=== PATIENT | female | born 1985 | race Hispanic/Latino ===

== ENCOUNTER → 2020-03-24 09:13 | Outpatient (CLI) | payer OTHER, MEDICAID, SELFPAY ==
--- NOTE | 2020-03-24 | DI.MRI.S_ITS ---
PROCEDURE: MR KNEE RT WO CON INDICATIONS: Other tear of medial meniscus, current injury, right knee, TECHNIQUE: Noncontrast sagittal PD fast spin echo and T2 fast spin echo with fat saturation, sagittal 3-D FLASH with fat saturation; coronal T1 spin echo and PD fast spin echo with fat saturation, and axial PD fast spin echo with fat saturation through the knee. COMPARISON: None. FINDINGS: Image quality: Excellent. Menisci: Medial meniscus is normal in size and signal intensity. Complex tear involving anterior horn of lateral meniscus is seen extending to both superior and inferior articulating surfaces. Large lobulated cystic structure anterior to lateral meniscus is seen with internal septations and measures up to 4.9 x 2.6 x 2.7 cm in size with no clear communication with joint space suspicious for a large perimeniscal cyst. The meniscal root ligaments appear intact. Cruciate ligaments: The anterior and posterior cruciate ligaments appear intact. Medial structures: The medial collateral ligament appears intact. The posterior oblique ligament, semimembranosus tendon insertions, oblique popliteal ligament, and meniscocapsular junction appear intact. Visualized portions of the pes anserinus tendons appear normal. No abnormal bursal fluid. Lateral structures: There is low-grade sprain/partial thickness tear involving proximal lateral collateral ligament. The long and short heads of the biceps femoris tendon appear intact. The popliteus tendon appears normal; the popliteofibular ligament appears intact. The posterosuperior and anteroinferior popliteomeniscal fascicles appear intact. The arcuate and fabellofibular ligaments appear intact, on either side of the lateral inferior geniculate artery. Iliotibial band appears normal. Anterior structures: The quadriceps and patellar tendons appear intact. Patellar alignment is normal. No femoral trochlear dysplasia or ventral trochlear prominence. No edema in the infrapatellar fat pad. Bones and cartilage: No bone marrow contusions or fractures. The cartilage of the medial and lateral femorotibial compartments, as well as the patellofemoral compartment, appears normal in thickness. Joint space: There is small to moderate amount of joint effusion.. No Marquez's cyst. Normal appearing synovial plicae are incidentally noted. IMPRESSION: 1. Complex tear involving anterior horn of lateral meniscus extending to both superior and inferior articulating surfaces with suggestion of large perimeniscal cyst measures 4.6 x 2.6 x 2.7 cm in size anterior to the lateral meniscus with internal septation. No evidence of focal lateral meniscal tear. 2. Low-grade proximal LCL sprain/partial thickness tear. Cruciate ligaments are intact. 3. No fracture or dislocation. Articulating cartilages are grossly intact. Small to moderate joint effusion. Dictated by: Mason Crockett M.D. on 03/24/2020 at 11:46 Approved by: Mason Crockett M.D. on 03/24/2020 at 11:56
== END ==
PROVIDERS: Referring Provider Orthopaedic Surgery; Visit Provider Orthopaedic Surgery
DX: S83.271A Complex tear of lateral meniscus, current injury, right knee, initial encounter (principal); S83.421A Sprain of lateral collateral ligament of right knee, initial encounter; M25.461 Effusion, right knee
CPT/HCPCS: 73721

== ENCOUNTER 2021-05-25 09:24 | Emergency (ER) | payer OTHER, MEDICAID, SELFPAY ==
[2021-05-25 09:34] VITALS: BP 160/80; PULSE 80; RESP 17; TEMP 36.7; O2SAT 100; BMI 35.6
--- NOTE | 2021-05-25 09:42 | ED_ITS ---
HPI - Headache General Chief Complaint: Headache Stated Complaint: HEADACHE/PAIN ON RT SIDE OF HEAD/SWEATS Time Seen by Provider: 05/25/21 09:29 Mode of arrival: Ambulatory Limitations: no limitations History of Present Illness HPI Narrative: Patient is a 35-year-old female approximately 5 days ago she hit the top of her head on a piece of furniture while doing laundry. She had no loss of consciousness. She is not on blood thinners. Since that time she has had a right-sided headache. Last night she stated that she was having some sweating. She feels like the right side of her head is full. She has some pain on her neck on the right side. The pain is worse with touching the area. Also has had some nausea. Also has had some vision changes in her right eye that seem to come and go. She has tried some Tylenol and ibuprofen equivalent prior to arrival with only minimal improvement. Related Data Previous Rx's Medication Instructions Recorded cyclobenzaprine 10 mg tablet 10 mg PO TID PRN #10 tab 05/25/21 Review of Systems Constitutional Constitutional: Reports headache(s) Eyes Eyes: Reports as per HPI ENT Ears, Nose, Mouth, and Throat: Reports headache(s) and Reports neck pain Cardiovascular Cardiovascular: Reports system reviewed and no additional complaints, except as documented Respiratory Respiratory: Reports system reviewed and no additional complaints, except as documented Gastrointestinal Gastrointestinal: Reports system reviewed and no additional complaints, except as documented and Reports nausea Musculoskeletal Musculoskeletal: Denies back pain and Reports neck pain Integumentary/Breasts Skin/Breast: Reports system reviewed and no additional complaints, except as documented Neurologic Neurologic: Reports system reviewed and no additional complaints, except as documented and Reports headache(s) Endocrine Endocrine: Reports system reviewed and no additional complaints, except as documented Hematologic/Lymphatic On Anticoagulants: No Allergic/Immunologic Allergic/Immunologic: Reports system reviewed and no additional complaints, except as documented Patient History Medical History Healthy adult Social History Smoking Status: Former smoker Smoking Status: Former smoker alcohol intake frequency: 0-2 drinks per day Substance Use Type: does not use Exam Initial Vital Signs Initial Vital Signs: Vital Signs Temperature 98.1 F 05/25/21 09:34 Pulse Rate 80 05/25/21 09:34 Respiratory Rate 17 05/25/21 09:34 Blood Pressure 160/80 H 05/25/21 09:34 Pulse Oximetry 100 05/25/21 09:34 Const General: cooperative and comfortable HENMT Head: normal to inspection and normocephalic Ears: TM's normal bilaterally Nose: external nose normal Face and sinus: normal facial exam Mouth: oral mucosae normal Eyes Pupils: PERRL EOM: EOM intact bilaterally Other: No photophobia Resp Effort & Inspection: normal respiratory effort Auscultation: clear to auscultation bilaterally Cardio Rate: regular rate Rhythm: regular rhythm Skin General: no rashes or lesions noted Neuro General: patient alert, patient awake and patient oriented x3 Cranial Nerves: CN's II-XI intact bilaterally Speech: speech normal Gait: normal gait Extrem General: normal to inspection and capillary refill normal Psych Appearance: grossly normal and well kempt Scores [place] Head Rule Age <16 years old: No Patient on blood thinners: No Seizure after injury: No Exclusion: Patient NOT Excluded, Proceed to next steps GCS < 15 at 2 hr post trauma: No Suspected open or depressed skull fracture: No Any sign of basilar skull fracture (hemotympanum, raccoon eyes, Means's sign, CSF bill-/rhinorrhea): No Two or more episodes of vomiting: No Age greater or equal to 65 years: No Retrograde amnesia to the event greater or equal to 30 min: No Dangerous Mechanism (pedestrian vs. mv, occupant ejected from mv, fall from >3 ft or > 5 stairs): No Recommendation: CT unnecessary GCS Viola coma scale eye opening: Spontaneous Noemi coma scale verbal response: Orientated Noemi coma scale motor response: Obey commands Viola coma scale total score: 15 Course Vital Signs Vital signs: Vital Signs - 8 hr 05/25/21 09:34 Temperature 98.1 F Pulse Rate 80 Respiratory Rate 17 Blood Pressure 160/80 H Pulse Oximetry 100 MDM - Headache MDM Narrative Medical decision making narrative: Patient is nontoxic appearing. She is low risk per the [place] Head CT Rule. Her head injury was 5 days ago. Low suspicion for skull fracture. Low suspicion for intracranial hemorrhage. No indication for head CT. Physical exam is very consistent with a post concussive syndrome. I did discuss this with the patient. I did offer a trigger point injection however she declined. She will continue to use Tylenol/ibuprofen. Will also send home with some muscle relaxers. She was given return precautions. She expressed understanding and agreement Discharge Plan Departure Patient Disposition: Home Clinical Impression: Postconcussion syndrome Instructions: DI for Postconcussion Syndrome Activity Restrictions/Additional Instructions: You can continue to use Tylenol and/or Motrin/ibuprofen. You may have to use these medications multiple times a day. Please refer to the packaging for dosing. They symptoms that you are having sometimes can take days/weeks to improve. Everyone is somewhat different with this. If your symptoms persist past a couple weeks you do need to talk with your primary doctor as you may need to get into see a concussion specialist. Prescriptions: New cyclobenzaprine 10 mg tablet 10 mg PO TID PRN (Reason: muscle spasm) Qty: 10 RF: 0
== END 2021-05-25 09:56 | disposition home or self-care (01) ==
PROVIDERS: Emergency Provider Emergency Medicine
DX: F07.81 Postconcussional syndrome (principal); M54.2 Cervicalgia
CPT/HCPCS: 99281

== ENCOUNTER 2021-05-29 13:53 | Emergency (ER) | payer OTHER, MEDICAID, SELFPAY ==
[2021-05-29 14:04] VITALS: BP 150/102; PULSE 87; RESP 18; TEMP 36.4; O2SAT 99; BMI 35.6
--- NOTE | 2021-05-29 14:08 | DI.CT.S_ITS ---
PROCEDURE: CT HEAD/BRAIN WO CON INDICATIONS: headache TECHNIQUE: Noncontrast 4.5 mm thick angled axial sections acquired from the foramen magnum to the vertex, with coronal and sagittal reformats. For radiation dose reduction, the following was used: automated exposure control, adjustment of mA and/or kV according to patient size. COMPARISON: None. FINDINGS: Image quality: Excellent. CSF spaces: Basal cisterns are patent. No extra-axial fluid collections. Ventricles are normal in size and shape. Brain: No midline shift. No intracranial masses or hemorrhage. Arreola-white matter interface is normal. Skull and face: Calvarium and visualized facial bones are intact, without suspicious lesions. Sinuses: Visualized sinuses and mastoids are clear. IMPRESSION: No acute intracranial disease process. Dictated by: Greta Penaloza MD, PhD on 05/29/2021 at 14:29 Approved by: Greta Penaloza MD, PhD on 05/29/2021 at 14:31
--- NOTE | 2021-05-29 14:21 | ED_ITS ---
HPI - Headache General Chief Complaint: Headache Stated Complaint: Headache Time Seen by Provider: 05/29/21 14:15 Mode of arrival: Ambulatory History of Present Illness HPI Narrative: Patient is a 35-year-old female here for evaluation of a headache. I evaluated her approximately 1 week ago after she was having a headache on the right side of her head behind her right eye. This started after she hit her head on a piece of furniture. There was no loss of consciousness. At the time of my last exam she was discharged home without imaging studies. She states she has had continued headache since then. It has worsened since then. Does have pain with vision in her right eye. No fevers. She has been taking the medications that she was discharged home with with only minimal improvement. Related Data Previous Rx's Medication Instructions Recorded [id number]-txuyfhirbitij-[id number] 1 cap PO Q4-6H PRN #14 cap 05/29/21 50 mg-300 mg-40 mg capsule (Fioricet) Allergies Allergy/AdvReac Type Severity Reaction Status Date / Time No Known Drug Allergies Allergy Verified 05/29/21 14:07 Review of Systems Constitutional Constitutional: Denies fever(s) and Reports headache(s) Eyes Eyes: Reports as per HPI ENT Ears, Nose, Mouth, and Throat: Reports system reviewed and no additional complaints, except as documented and Reports headache(s) Cardiovascular Cardiovascular: Reports system reviewed and no additional complaints, except as documented Respiratory Respiratory: Reports system reviewed and no additional complaints, except as documented Gastrointestinal Gastrointestinal: Reports system reviewed and no additional complaints, except as documented Integumentary/Breasts Skin/Breast: Reports system reviewed and no additional complaints, except as documented Neurologic Neurologic: Reports headache(s) Hematologic/Lymphatic On Anticoagulants: No Patient History Medical History Healthy adult Social History Smoking Status: Former smoker Smoking Status: Former smoker alcohol intake frequency: 0-2 drinks per day Substance Use Type: does not use Exam Initial Vital Signs Initial Vital Signs: Vital Signs Temperature 97.5 F L 05/29/21 14:04 Pulse Rate 87 05/29/21 14:04 Respiratory Rate 18 05/29/21 14:04 Blood Pressure 150/102 H 05/29/21 14:04 Pulse Oximetry 99 05/29/21 14:04 Const General: cooperative and healthy appearing [facility] Head: normal to inspection, normocephalic and atraumatic Eyes General: appearance normal, both eyes and all related structures Resp Effort & Inspection: normal respiratory effort Auscultation: clear to auscultation bilaterally Cardio Rate: regular rate Rhythm: regular rhythm Skin General: no rashes or lesions noted Neuro General: patient alert, patient awake, patient oriented x3 and moves all e xtremities Cognition: normal cognition Speech: speech normal Gait: normal gait Extrem General: normal to inspection and capillary refill normal Psych Appearance: grossly normal and well kempt Scores GCS Noemi coma scale eye opening: Spontaneous Noemi coma scale verbal response: Orientated [place] coma scale motor response: Obey commands Noemi coma scale total score: 15 Course Orders Ordered: ED Orders 05/29/21 14:08 CT head/brain wo con Stat 05/29/21 14:27 Urine Culture Stat Urine Microscopic Stat 05/29/21 14:30 Complete Blood Count AUTO DIFF Stat Comprehensive Metabolic Panel Stat Discontinued Medications Diphenhydramine HCl (Diphenhydramine 50 Mg/Ml Vial) 25 mg IV NOW ONE Stop: 05/29/21 14:30 Last Admin: 05/29/21 14:38 Dose: 25 mg Documented by: TATYANA Ketorolac Tromethamine (Ketorolac 30 Mg/Ml Vial) 30 mg IV NOW ONE Stop: 05/29/21 14:30 Last Admin: 05/29/21 14:39 Dose: 30 mg Documented by: TATYANA Metoclopramide HCl (Metoclopramide 10 Mg/2 Ml Inj) 10 mg IV NOW ONE Stop: 05/29/21 14:30 Last Admin: 05/29/21 14:38 Dose: 10 mg Documented by: TATYANA Vital Signs Vital signs: Vital Signs - 8 hr 05/29/21 14:04 05/29/21 15:00 05/29/21 15:30 Temperature 97.5 F L Pulse Rate 87 103 H 74 Respiratory Rate 18 Blood Pressure 150/102 H 109/65 Pulse Oximetry 99 100 100 05/29/21 16:00 Temperature Pulse Rate 67 Respiratory Rate Blood Pressure Pulse Oximetry 100 MDM - Headache Medical Records Attestation: I reviewed the patient's medical records. Lab Data Attestation: I reviewed the patient's lab results. Result diagrams: 05/29/21 14:30 05/29/21 14:30 Labs: Lab Results 05/29/21 05/29/21 05/29/21 Range/Units 14:27 14:30 14:30 WBC 6.2 (4.5-11.0) X10^3/uL RBC 4.70 (4.0-5.2) X10^6/uL Hgb 13.7 (12.0-16.0) g/dL Hct 41.0 (36-46) % MCV 87.2 (80-100) fL MCH 29.1 (26-34) PG MCHC 33.3 (30-36) % RDW 12.8 (11.6-14.8) % Plt Count 240 (150-400) X10^3/uL Neut % (Auto) 61.1 (50-75) % Lymph % (Auto) 29.2 (25-40) % [place] % (Auto) 8.4 (3-14) % Eos % (Auto) 0.9 L (2-4) % Baso % (Auto) 0.4 (0-2) % Neut # (Auto) 3800 (9623-1379) /uL Lymph # (Auto) 1800 (5092-2943) /uL [place] # (Auto) 500 (0-900) /uL Eos # (Auto) 100 (0-450) /uL Baso # (Auto) 0 (0-100) /uL Sodium 138 (137-145) mmol/L Potassium 4.0 (3.4-5.1) mmol/L Chloride 103 (98-107) mmol/L Carbon Dioxide 28 (22-32) mmol/L BUN 15 (7-17) mg/dL Creatinine 0.66 (0.52-1.04) mg/dL Estimated GFR > 60.0 (>60) mL/min BUN/Creatinine Ratio 22.7 H (6-22) Glucose 94 (70-100) mg/dL Calcium 9.4 (8.4-10.2) mg/dL Total Bilirubin 0.4 (0.2-1.3) mg/dL AST 28 (14-36) IU/L ALT 18 (<35) IU/L Alkaline Phosphatase 83 (38-126) U/L Total Protein 8.0 (6.3-8.2) g/dL Albumin 4.5 (3.5-5.0) g/dL Globulin 3.5 (1.7-4.1) g/dL Albumin/Globulin Ratio 1.3 (1.0-2.8) Urine RBC 5-10/hpf H (0-5/HPF) Urine WBC 5-10/hpf H (0-5/HPF) Amorphous Sediment 2+ Urine Bacteria Moderate (10-30) H (None) Urine Mucus 1+ H (Negative) Ur Culture Indicated? Specimen cultured Point of Care Testing Test Results Negative Urine Dip Bedside Urine Glucose Negative Bedside Urine Bilirubin - Negative Bedside Urine Ketone - Negative Urine Specific [place] 1.025 Bedside Urine Occult Blood + Bedside Urine pH 6.0 Bedside Urine Protein - Negative Bedside Urine Urobilinogen - Negative Bedside Urine Nitrite - Negative Bedside Urine Leukocytes - Negative Esterase Imaging Data CT scan - head: Radiologist's Impression: [address] [id number] Scan ReportSigned Patient: Clara Perry#: [id number]: 1985Acct:[id number]/Sex: 35 / FDate of Service: 05/29/21Loc: EDAccession Number: [id number] Procedure: CT head/brain wo con Ordering Provider: Massimo Juarez D.O. PROCEDURE: CT HEAD/BRAIN WO CON INDICATIONS: headache TECHNIQUE: Noncontrast 4.5 mm thick angled axial sections acquired from the foramen magnum to the vertex, with coronal and sagittal reformats. For radiation dose reduction, the following was used: automated exposure control, adjustment of mA and/or kV according to patient size. COMPARISON: None. FINDINGS: Image quality: Excellent. CSF spaces: Basal cisterns are patent. No extra-axial fluid collections. Ventricles are normal in size and shape. Brain: No midline shift. No intracranial masses or hemorrhage. Arreola-white matter interface is normal. Skull and face: Calvarium and visualized facial bones are intact, without suspicious lesions. Sinuses: Visualized sinuses and mastoids are clear. IMPRESSION: No acute intracranial disease process. Dictated by: Greta Penaloza MD, PhD on 05/29/2021 at 14:29 Approved by: Greta Penaloza MD, PhD on 05/29/2021 at 14:31 MDM Narrative Medical decision making narrative: Patient reports complete resolution of her symptoms after medications given here in the ER. Afebrile. Head CT is unremark able. Low suspicion for intracranial hemorrhage given her presentation. I do suspect that this is postconcussive syndrome. Will send her home with Fioricet. She was given return precautions. She expressed understanding and agreement. Discharge Plan Departure Patient Disposition: Home Clinical Impression: Headache, Postconcussion syndrome Instructions: DI for Headache Activity Restrictions/Additional Instructions: I do recommend that you contact your primary doctor is you are most likely going to need follow-up to make sure that your symptoms are improving. Return to the emergency department for any new or worsening symptoms. Prescriptions: New orjwoyzgmo-mhbpopupyflzy-aidc [Fioricet] 50-300-40 mg capsule 1 cap PO Q4-6H PRN (Reason: pain) Qty: 14 RF: 0
[2021-05-29] MEDS: METOCLOPRAMIDE 10 MG/2 ML INJ IV (14:38)
[2021-05-29] MEDS: diphenhydrAMINE 50 MG/ML VIAL 25 MG IV (14:38)
[2021-05-29] MEDS: KETOROLAC 30 MG/ML VIAL IV (14:39)
[2021-05-29 14:40] LABS: RBC Urine 5-10/HPF (0-5/HPF); WBC Urine 5-10/HPF (0-5/HPF)
[2021-05-29 14:41] LABS: Amorphous Sediment Urine 2+; Bacteria Urine Moderate (10-30); Culture Indicated Urine Specimen Cultured; Mucus Urine 1+ (Negative)
[2021-05-29 14:43] LABS: Add Manual Diff / Slide Review NO; Basophils Absolute Auto 0 /uL (0-100); Basophils Percent Auto 0.4 % (0-2); Eosinophils Absolute Auto 100 /uL (0-450); Eosinophils Percent Auto 0.9 % (2-4); Hemoglobin 13.7 g/dL (12.0-16.0); Lymphocytes Absolute Auto 1800 /uL (1100-4500); Lymphocytes Percent Auto 29.2 % (25-40); Mean Corpuscular HGB Conc 33.3 % (30-36); Mean Corpuscular Hemoglobin 29.1 PG (26-34); Mean Corpuscular Volume 87.2 fL (80-100); Monocytes Absolute Auto 500 /uL (0-900); Monocytes Percent Auto 8.4 % (3-14); Neutrophils Absolute Auto 3800 /uL (1500-7000); Neutrophils Percent Auto 61.1 % (50-75); Platelet Count 240 X10^3/uL (150-400); Red Cell Distribution Width 12.8 % (11.6-14.8); White Blood Cell Count 6.2 X10^3/uL (4.5-11.0)
[2021-05-29 14:52] LABS: Alanine Aminotransferase 18 IU/L (<35); Albumin 4.5 g/dL (3.5-5.0); Albumin Globulin Ratio 1.3 (1.0-2.8); Alkaline Phosphatase 83 U/L (38-126); Aspartate Aminotransferase 28 IU/L (14-36); BUN Creatinine Ratio 22.7 (6-22); Bilirubin Total 0.4 mg/dL (0.2-1.3); Blood Urea Nitrogen 15 mg/dL (7-17); Calcium 9.4 mg/dL (8.4-10.2); Carbon Dioxide 28 mmol/L (22-32); Chloride 103 mmol/L (98-107); Estimated Glomerular Filt Rate > 60.0 mL/min (>60); Globulin 3.5 g/dL (1.7-4.1); Glucose 94 mg/dL (70-100); HEMOLYSIS 16 (0-50); Sodium 138 mmol/L (137-145)
[2021-05-29 15:00] VITALS: PULSE 103; O2SAT 100
[2021-05-29 15:30] VITALS: BP 109/65; PULSE 74; O2SAT 100
[2021-05-29 16:00] VITALS: PULSE 67; O2SAT 100
[2021-05-29 16:30] VITALS: BP 112/65; PULSE 71; O2SAT 100
== END 2021-05-29 17:08 | disposition home or self-care (01) ==
PROVIDERS: Emergency Provider Emergency Medicine
DX: F07.81 Postconcussional syndrome (principal); R51.9 Headache, unspecified
CPT/HCPCS: 36415; 70450; 80053; 81003; 81015; 81025; 85025; 87086; 96374; 96375; 99284; J1200; J1885; J2765

== ENCOUNTER 2024-03-25 14:49 | Emergency (ER) | payer OTHER, MEDICAID, SELFPAY ==
[2024-03-25 14:58] VITALS: BP 142/87; PULSE 85; RESP 14; TEMP 36.5; O2SAT 100; BMI 68.8
--- NOTE | 2024-03-25 15:13 | EKG_ITS ---
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
[2024-03-25 15:38] LABS: Add Manual Diff / Slide Review NO; Basophils Absolute Auto 0 /uL (0-100); Basophils Percent Auto 0.5 % (0-2); Eosinophils Absolute Auto 100 /uL (0-450); Eosinophils Percent Auto 0.8 % (2-4); Hematocrit 37.6 % (36-46); Hemoglobin 12.9 g/dL (12.0-16.0); Lymphocytes Absolute Auto 1800 /uL (1100-4500); Mean Corpuscular HGB Conc 34.5 % (30-36); Mean Corpuscular Hemoglobin 29.8 PG (26-34); Mean Corpuscular Volume 86.5 fL (80-100); Monocytes Absolute Auto 600 /uL (0-900); Monocytes Percent Auto 8.8 % (3-14); Neutrophils Absolute Auto 3900 /uL (1500-7000); Neutrophils Percent Auto 61.9 % (50-75); Platelet Count 241 X10^3/uL (150-400); Red Blood Cell Count 4.34 X10^6/uL (4.0-5.2); Red Cell Distribution Width 13.1 % (11.6-14.8); White Blood Cell Count 6.3 X10^3/uL (4.5-11.0)
[2024-03-25 15:55] LABS: Alanine Aminotransferase 14 IU/L (<35); Albumin 4.5 g/dL (3.5-5.0); Albumin Globulin Ratio 1.3 (1.0-2.8); Alkaline Phosphatase 85 U/L (38-126); Aspartate Aminotransferase 25 IU/L (14-36); Bilirubin Total 0.6 mg/dL (0.2-1.3); Blood Urea Nitrogen 13 mg/dL (7-17); Calcium 8.7 mg/dL (8.4-10.2); Carbon Dioxide 23 mmol/L (22-32); Chloride 107 mmol/L (98-107); Estimated Glomerular Filt Rate > 60 mL/min (>60); Globulin 3.4 g/dL (1.7-4.1); Glucose 96 mg/dL (70-100); HEMOLYSIS < 15 (0-50); Lipase 75 U/L (23-300); Potassium 3.7 mmol/L (3.4-5.1); Sodium 135 mmol/L (137-145); Total Protein 7.9 g/dL (6.3-8.2)
[2024-03-25 17:03] VITALS: BP 135/88; PULSE 61; O2SAT 100
[2024-03-25 17:30] VITALS: BP 136/75; O2SAT 99
[2024-03-25 18:00] VITALS: BP 130/76; PULSE 71; O2SAT 100
--- NOTE | 2024-03-25 18:29 | ED.ABDPAIN ---
HPI - Abdominal Pain General Chief Complaint: Abdominal Pain Stated Complaint: Abdominal Pain Time Seen by Provider: 03/25/24 15:11 Source: patient Mode of arrival: Ambulatory History of Present Illness HPI narrative: 38-year-old female presents for evaluation of right lower quadrant abdominal pain. Patient states that she has had pain in his area for several months, but it became worse in the last 2 days. She states that she feels there is a ?ball? in her right abdomen. She was not taken any medications at home for symptoms. She was never seen a primary care doctor for this complaint. Denies nausea, vomiting, change in bowel habits, dysuria, vaginal bleeding, other complaints at this time. Related Data Previous Rx's Medication Instructions Recorded ngygwimnqq-eykszcskvzkvn-kepqxznd 1 cap PO Q4-6H PRN pain #14 caps 05/29/21 50 mg-300 mg-40 mg capsule (Fioricet) Allergies Allergy/AdvReac Type Severity Reaction Status Date / Time No Known Drug Allergies Allergy Verified 05/29/21 14:07 Patient History Medical History Healthy adult Social History Smoking Status: Former smoker Smoking Status: Former smoker alcohol intake frequency: 0-2 drinks per day Substance Use Type: does not use Exam Initial Vital Signs Initial Vital Signs: Vital Signs Temperature 97.7 F 03/25/24 14:58 Pulse Rate 85 03/25/24 14:58 Respiratory Rate 14 03/25/24 14:58 Blood Pressure 142/87 H 03/25/24 14:58 Pulse Oximetry 100 03/25/24 14:58 Oxygen Delivery Method Room Air 03/25/24 14:58 Const: Awake, alert, no acute distress, nontoxic appearing Cardiac: regular rate, regular rhythm RESP: unlabored, clear bilaterally, no wheezing GI: Soft, nontender, nondistended, no rebound, no guarding MSK: Atraumatic, full range of motion, pulses equal Skin: Warm, Dry, intact, no rashes Neuro: AO x3, CN II-XII grossly intact, moves all extremities Course Orders Ordered: ED Orders 03/25/24 18:28 CT abdomen pelvis w con Stat Discontinued Medications Ondansetron HCl (Ondansetron 4 Mg/2 Ml Inj) 4 mg IV NOW PRN PRN Reason: Nausea And Vomiting Ondansetron HCl (Ondansetron 4 Mg Odt) 4 mg PO NOW PRN PRN Reason: Nausea And Vomiting Vital Signs Vital signs: Vital Signs - 8 hr 03/25/24 19:00 Pulse Rate 61 Pulse Oximetry 100 MDM - Abdominal Pain Differential Diagnosis Differential diagnosis: Likely abdominal pain, acute appendicitis and calculus of kidney Lab Data 03/25/24 15:27 03/25/24 15:27 Labs: Lab Results 03/25/24 Range/Units 15:27 WBC 6.3 (4.5-11.0) X10^3/uL RBC 4.34 (4.0-5.2) X10^6/uL Hgb 12.9 (12.0-16.0) g/dL Hct 37.6 (36-46) % MCV 86.5 (80-100) fL MCH 29.8 (26-34) PG MCHC 34.5 (30-36) % RDW 13.1 (11.6-14.8) % Plt Count 241 (150-400) X10^3/uL Neut % (Auto) 61.9 (50-75) % Lymph % (Auto) 28.0 (25-40) % Hernando % (Auto) 8.8 (3-14) % Eos % (Auto) 0.8 L (2-4) % Baso % (Auto) 0.5 (0-2) % Neut # (Auto) 3900 (3806-8620) /uL Lymph # (Auto) 1800 (7865-7439) /uL Hernando # (Auto) 600 (0-900) /uL Eos # (Auto) 100 (0-450) /uL Baso # (Auto) 0 (0-100) /uL Sodium 135 L (137-145) mmol/L Potassium 3.7 (3.4-5.1) mmol/L Chloride 107 (98-107) mmol/L Carbon Dioxide 23 (22-32) mmol/L BUN 13 (7-17) mg/dL Creatinine 0.65 (0.52-1.04) mg/dL Estimated GFR > 60 (>60) mL/min BUN/Creatinine Ratio 20.0 (6-22) Glucose 96 (70-100) mg/dL Calcium 8.7 (8.4-10.2) mg/dL Total Bilirubin 0.6 (0.2-1.3) mg/dL AST 25 (14-36) IU/L ALT 14 (<35) IU/L Alkaline Phosphatase 85 (38-126) U/L Total Protein 7.9 (6.3-8.2) g/dL Albumin 4.5 (3.5-5.0) g/dL Globulin 3.4 (1.7-4.1) g/dL Albumin/Globulin Ratio 1.3 (1.0-2.8) Lipase 75 (23-300) U/L Point of care testing: Point of Care Testing Test Results Negative Urine Dip Bedside Urine Glucose Negative Bedside Urine Bilirubin - Negative Bedside Urine Ketone - Negative Urine Specific Edmond 1.025 Bedside Urine Occult Blood - Negative Bedside Urine Protein - Negative Bedside Urine Urobilinogen - Negative Bedside Urine Nitrite - Negative Bedside Urine Leukocytes - Negative Esterase Imaging Data CT scan - abdomen/pelvis: Radiologist's Impression: PROCEDURE: CT ABDOMEN PELVIS W CON INDICATIONS: BALL IN RLQ, WORSENING PAIN TECHNIQUE: After the administration of intravenous contrast, axial sections acquired from the lung bases to the pubic symphysis. Coronal and sagittal reformats were performed. For radiation dose reduction, the following was used: automated exposure control, adjustment of mA and/or kV according to patient size. COMPARISON: None. FINDINGS: Image quality: Diagnostic. Lower Chest: No significant findings. ABDOMEN: Liver: No solid mass. Gallbladder: Cholelithiasis without evidence of gallbladder inflammation. Biliary ducts: No biliary dilation. Pancreas: No ductal dilation. Spleen: Size is within normal limits. Adrenal Glands: No adrenal nodules. Kidneys and Ureters: No hydronephrosis. No solid mass. No complex renal cystic lesion which requires follow up. Stomach and Bowel: Normal colonic caliber, without significant wall thickening. Normal appendix. Peritoneum: No abnormal intraperitoneal fluid. No free air. Ventral Wall: No significant ventral hernia. Abdominal Nodes: No retroperitoneal or mesenteric adenopathy by size criteria. Vessels: Aorta and inferior vena cava are normal in size. PELVIS: Pelvic Organs: Unremarkable. Bladder: No bladder wall thickening, accounting for underdistention. Pelvic Nodes: No enlarged lymph nodes. Miscellaneous: No inguinal hernias are seen. Bones: No aggressive osseous abnormality. IMPRESSION: 1. No acute findings within the abdomen or pelvis. Normal appendix. 2. Cholelithiasis without CT evidence of acute cholecystitis. Dictated by: Juan C Webster M.D. on 03/25/2024 at 19:00 Approved by: Juan C Webster M.D. on 03/25/2024 at 19:03 [facility] Narrative Medical decision making narrative: Well-appearing patient with several months of right-sided abdominal pain, worse in the last 2 days. Abdomen soft, I do not appreciate any hernias or other explainations for the ball patient is describing. Labs and imaging unremarkable, no explaination for symptoms. patient counseled to take tylenol and ibuprofen as needed for symptoms and to follow up with primary care doctor. Patient requested to be discharged quickly in order to make the ferry back to [facility] Discharge Plan Departure Patient Disposition: Home Clinical Impression: Abdominal pain Qualifiers: Abdominal location: right lower quadrant Qualified Code(s): R10.31 - Right lower quadrant pain Instructions: DI for Abdominal Pain-Adult Activity Restrictions/Additional Instructions: Your laboratory work and CT imaging today were normal. There is no obvious cause of the ball that you were feeling in your abdomen. Follow up with your primary care doctor if you continue to experience pain. Take Tylenol and ibuprofen as needed for discomfort. Prescriptions: No Action isamwlpngw-emgyghmlmwmei-plam [Fioricet] 50-300-40 mg capsule 1 cap PO Q4-6H PRN (Reason: pain) Qty: 14 0RF Stand Alone Forms: Patient Portal/API
[2024-03-25 18:30] VITALS: BP 139/72; PULSE 63; O2SAT 100
[2024-03-25 19:00] VITALS: PULSE 61; O2SAT 100
== END 2024-03-25 19:29 | disposition home or self-care (01) ==
PROVIDERS: Emergency Medicine; Emergency Provider Emergency Medicine
DX: R10.31 Right lower quadrant pain (principal); I45.10 Unspecified right bundle-branch block
CPT/HCPCS: 36415; 74177; 80053; 81003; 81025; 83690; 85025; 93005; 99283; 99284